=== PATIENT | female | born 1945 | race Caucasian/White ===

== ENCOUNTER → 2017-07-13 | Outpatient (CLI) | payer MEDICARE, OTHER ==
[~2017-07-13] MED LIST: AMLO-96 PO; AMLO-99 PO; ASC500 PO; ASCO-182 PO; ASP325 PO; ATEN-1 PO; ATEN-65 PO; CALC600T72 PO; CHOL10005 PO; CHOL100060 PO; CLO5 PO; CYAN100070 PO; EST42T PV; ESTR1VAG6 VG; GLUC500T13 PO; LISI-362 PO; LISI-374 PO; MECL25TA27 PO; MULT-1319 PO; NIA500 PO; TEL40 PO; [UNRECOGNIZED DRUG - CODE] PO; [UNRECOGNIZED DRUG - CODE] PO; [UNRECOGNIZED DRUG - OTHER]; blood pressure med
--- NOTE | 2017-07-14 09:36 | RADIOLOGY IMAGING REPORT ---
FACILITY: [facility] [place] PATIENT NAME: ADRIAN TORRE : [id number] MR: [id number] V: [id number] EXAM DATE: ORDERING PHYSICIAN: DANN DUVAL TECHNOLOGIST: Lynette Monsalve PROCEDURE:BILATERAL DIGITAL SCREENING MAMMOGRAM WITH CAD ASSISTED INTERPRETATION & 3D TOMOSYNTHESIS COMPARISON:Prior mammograms 07/09/16, 06/18/15, 05/31/14, 05/21/14, 03/23/13. INDICATIONS:SCREENING FINDINGS: Moderately dense heterogeneous fibroglandular tissue is seen throughout the breasts. The parenchymal pattern has remained stable allowing for difference in mammographic technique & patient positioning. There is no evidence of malignant appearing mass, malignant appearing calcifications or other secondary sign of malignancy in either breast. DIAGNOSTIC CATEGORY 1--NEGATIVE. RECOMMENDATIONS: ROUTINE MAMMOGRAM AND CLINICAL EVALUATION. IMPRESSION: BIRADS 1: Negative No significant abnormality is seen. Dictated by: Christa Dolan M.D. on 07/13/2017 at 17:23 Transcribed by: MARIE on 07/14/2017 at 8:55 Approved by: Christa Dolan M.D. on 07/14/2017 at 9:35 [facility]
== END ==
LOC: MAMO 02:40
PROVIDERS: ATTEND Family Medicine
DX: Z12.31 Encounter for screening mammogram for malignant neoplasm of breast (principal)
CPT/HCPCS: 77063; 77067

== ENCOUNTER → 2018-09-12 | Outpatient (CLI) | payer MEDICARE, OTHER ==
[~2018-09-12] MED LIST changes: +AMLO-125 PO; +AMLO-127 PO; -AMLO-96 PO; -AMLO-99 PO
--- NOTE | 2018-09-13 09:41 | RADIOLOGY IMAGING REPORT ---
FACILITY: [facility] PATIENT NAME: ADRIAN TORRE : [id number] MR: [id number] V: [id number] EXAM DATE: ORDERING PHYSICIAN: DANN DUVAL TECHNOLOGIST: Ling Poe PROCEDURE: BILATERAL DIGITAL SCREENING MAMMOGRAM WITH CAD ASSISTED INTERPRETATION & 3D TOMOSYNTHESIS REASON FOR STUDY: Screening FAMILY HISTORY OF BREAST CANCER: Paternal Aunt BREAST PROCEDURES/TREATMENTS: A skin cancer removed from the medial upper Right breast. COMPARISON: 07/13/17, 07/09/16, 06/18/15, 05/31/14, 05/21/14, 03/23/13 VIEWS OBTAINED: Bilateral 2D & 3D full field CC & MLO BREAST DENSITY: The breasts are heterogeneously dense which can obscure small masses. MAMMOGRAPHIC FINDINGS: The parenchymal pattern has remained stable allowing for difference in mammographic technique & patient positioning. IMPRESSION: BIRADS 1: Negative. DIAGNOSTIC CATEGORY 1--NEGATIVE. RECOMMENDATIONS: ROUTINE MAMMOGRAM AND CLINICAL EVALUATION. Dictated by: Christa Dolan M.D. on 09/12/2018 at 16:51 Transcribed by: CLARENCE on 09/13/2018 at 6:57 Approved by: Christa Dolan M.D. on 09/13/2018 at 9:40 [facility]
== END ==
LOC: MAMO 00:07
PROVIDERS: ATTEND Family Medicine
DX: Z12.31 Encounter for screening mammogram for malignant neoplasm of breast (principal)
CPT/HCPCS: 77063; 77067